=== PATIENT | female | born 1985 | race Caucasian/White ===

== ENCOUNTER 2017-11-29 22:59 | Emergency (ER) | payer MEDICAID ==
[2017-11-29] MEDS ORDERED: SODIUM CHLORIDE 0.9% 1,000 ML IV ONE (23:26)
[2017-11-29 23:52] LABS: ALBUMIN/GLOBULIN RATIO 1.4 (1.0-2.2); BASOPHILS # (AUTO) 0.1 10^3/uL (0.0-0.1); BASOPHILS % (AUTO) 0.4 %; BILIRUBIN,TOTAL 0.4 mg/dL (0.2-1.0); CALCIUM 8.4 mg/dL (8.5-10.3); CREATININE 0.7 mg/dL (0.4-1.0); EOSINOPHILS % (AUTO) 0.1 %; HGB - HEMOGLOBIN 7.4 g/dL (12.0-16.0); LYMPHOCYTES # (AUTO) 2.1 10^3/uL (1.5-3.5); LYMPHOCYTES % (AUTO) 13.2 %; MEAN CORPUSCULAR HEMOGLOBIN 22.1 pg (27.0-31.0); MEAN CORPUSCULAR HGB CONC 30.8 g/dL (32.0-36.0); MEAN CORPUSCULAR VOLUME 71.8 fL (81.0-99.0); MEAN PLATELET VOLUME 8.6 fL (7.9-10.8); MONOCYTES # (AUTO) 0.8 10^3/uL (0.0-1.0); MONOCYTES % (AUTO) 5.3 %; NEUTROPHILS # (AUTO) 12.8 10^3/uL (1.5-6.6); PLT - PLATELET COUNT 359 10^3/uL (130-450); RED BLOOD COUNT 3.35 10^6/uL (4.20-5.40); RED CELL DISTRIBUTION WIDTH 17.5 % (12.0-15.0); TOTAL PROTEIN 6.9 g/dL (6.7-8.2); WHITE BLOOD COUNT 15.8 x10^3/uL (4.8-10.8)
[2017-11-29 23:55] LABS: BILIRUBIN,URINE NEGATIVE (NEGATIVE); GLUCOSE, URINE (UA) 500 mg/dL (NEGATIVE); KETONES,URINE (UA) NEGATIVE (NEGATIVE); LEUKOCYTE ESTERASE, URINE NEGATIVE (NEGATIVE); NITRITE,URINE NEGATIVE (NEGATIVE); OCCULT BLOOD,URINE NEGATIVE (NEGATIVE); PROTEIN,URINE NEGATIVE (NEGATIVE); UROBILINOGEN,URINE 0.2 (NORMAL) E.U./dL (NORMAL)
[2017-11-30 00:01] LABS: CLARITY,URINE CLEAR (CLEAR); HCG UR QUAL NEGATIVE
--- NOTE | 2017-11-30 00:30 | ED Physician Documentation ---
PD HPI FEMALE - Stated complaint Stated Complaint: FEMALE - Chief complaint Chief Complaint: Abd Pain - History obtained from History obtained from: Patient - History of Present Illness Timing - onset: How many days ago (3-4) Timing - duration: Days Timing - details: Abrupt onset, Intermittant Pain level max: 4 Pain level max: 0 (intermittent mild suprapubic cramping, but not at this time) Associated symptoms: Pelvic pain, Vaginal bleeding. No: Fever, Chest/shoulder p ain, Abdominal pain, Back pain, Vaginal pain, Vaginal discharge, Genital sore/lesion, Dysuria, Urinary frequency, Hematuria Contributing factors: No: Similar symptoms before: Has not had sx before Recently seen: Not recently seen - Additional information Additional information: c/o vaginal bleeding past 3-4 days with clots and mild suprapubic cramping. LMP 11/05/17. the timing of her periods have been predictable and thus this is not normal for her. Review of Systems Constitutional: reports: Reviewed and negative Cardiac: reports: Reviewed and negative Respiratory: reports: Reviewed and negative GI: denies: Abdominal Pain (suprapubic cramping, but no abdominal pain per se), Nausea, Vomiting : reports: LMP (11/05/17), Vaginal bleeding, Control. denies: Dysuria, Frequency, Discharge, Now [facility] PD PAST MEDICAL HISTORY - Past Medical History Past Medical History: No - Past Surgical History Past Surgical History: No - Present Medications Home Medications: Ambulatory Orders Medication Instructions Recorded Confirmed Bcp 11/29/17 - Allergies Allergies/Adverse Reactions: Allergies Allergy/AdvReac Type Severity Reaction Status Date / Time No Known Drug Allergies Allergy Verified 11/29/17 23:09 - Social History Does the pt smoke?: Yes Smoking Status: Current every day smoker Does the pt drink ETOH?: Yes Does the pt have substance abuse?: No - Immunizations Immunizations are current?: Yes - POLST Patient has POLST: No PD ED PE NORMAL - Vitals Vital signs reviewed: Yes - General General: Alert and oriented X 3, No acute distress, Well developed/nourished - Cardiac Cardiac: RRR, No murmur - Respiratory Respiratory: No respiratory distress, Clear bilaterally - Abdomen Abdomen: Normal bowel sounds, Soft, Non tender, Non distended - Derm Derm: Warm and dry, Other (pale) - Neuro Neuro: Alert and oriented X 3 PD ED PE EXPANDED - Female Female : Vaginal Bleeding (there is no bleeding on external exam; upon insertion of the speculum, the vagina quickly fills with dark blood. the blood was removed, along with few small clots, and there was no further bleeding. cervix was well visualized, no abnormalities visualized and no bleeding from os), Rehab Technician present (ANNI Corcoran) Results - Vitals Vitals: Vital Signs - 24 hr 11/30/17 11/30/17 11/30/17 01:20 02:22 02:31 Temperature 36.7 C 36.7 C Heart Rate 89 82 90 Respiratory 16 16 16 Rate Blood Pressure 111/72 117/58 L 122/74 O2 Saturation 100 11/30/17 11/30/17 11/30/17 02:46 03:05 03:43 Temperature 36.1 C L 36.3 C L Heart Rate 79 89 74 Respiratory 16 15 16 Rate Blood Pressure 133/66 H 112/60 101/60 O2 Saturation 98 99 11/30/17 11/30/17 11/30/17 03:46 03:56 04:04 Temperature 36.3 C L 36.3 C L 36.2 C L Heart Rate 77 78 85 Respiratory 16 14 15 Rate Blood Pressure 101/60 113/54 L 97/55 L O2 Saturation 11/30/17 11/30/17 11/30/17 04:20 04:26 04:56 Temperature 36.4 C L 36.2 C L Heart Rate 89 89 79 Respiratory 18 15 16 Rate Blood Pressure 97/51 L 113/62 112/58 L O2 Saturation 98 11/30/17 11/30/17 11/30/17 05:20 06:00 06:52 Temperature 36.3 C L 36.3 C L 36.6 C Heart Rate 73 75 84 Respiratory 15 16 16 Rate Blood Pressure 122/48 L 114/74 103/87 H O2 Saturation 98 99 11/30/17 07:25 Temperature 36.8 C Heart Rate 75 Respiratory 16 Rate Blood Pressure 117/70 O2 Saturation 100 Oxygen O2 Source Room air - Labs Labs: Laboratory Tests 11/29/17 11/29/17 11/29/17 23:24 23:24 23:24 WBC 15.8 H RBC 3.35 L Hgb 7.4 L Hct 24.1 L MCV 71.8 L MCH 22.1 L MCHC 30.8 L RDW 17.5 H Plt Count 359 MPV 8.6 Neut # (Auto) 12.8 H Lymph # (Auto) 2.1 Baker # (Auto) 0.8 Eos # (Auto) 0.0 Baso # (Auto) 0.1 Absolute Nucleated RBC 0.00 Nucleated RBC % 0.0 Sodium 132 L Potassium 2.7 L Chloride 101 Carbon Dioxide 20 L Anion Gap 11.0 BUN 7 Creatinine 0.7 Estimated GFR (MDRD) 96 Glucose 199 H Calcium 8.4 L Iron TIBC % Saturation Transferrin Total Bilirubin 0.4 AST 24 ALT 11 Alkaline Phosphatase 69 Total Protein 6.9 Albumin 4.0 Globulin 2.9 Albumin/Globulin Ratio 1.4 Lipase 30 Urine Color YELLOW Urine Clarity CLEAR Urine pH 6.0 Ur Specific Cecil >=1.030 H Urine Protein NEGATIVE Urine Glucose (UA) 500 H Urine Ketones NEGATIVE Urine Occult Blood NEGATIVE Urine Nitrite NEGATIVE Urine Bilirubin NEGATIVE Urine Urobilinogen 0.2 (NORMAL) Ur Leukocyte Esterase NEGATIVE Ur Microscopic Review NOT INDICATED Urine Culture Comments NOT INDICATED Urine HCG, Qual NEGATIVE Blood Type Blood Type Recheck Antibody Screen Crossmatch IS Only 11/29/17 11/30/17 11/30/17 23:24 00:01 00:35 WBC RBC Hgb Hct MCV MCH MCHC RDW Plt Count MPV Neut # (Auto) Lymph # (Auto) Baker # (Auto) Eos # (Auto) Baso # (Auto) Absolute Nucleated RBC Nucleated RBC % Sodium Potassium Chloride Carbon Dioxide Anion Gap BUN Creatinine Estimated GFR (MDRD) Glucose Calcium Iron 9 L TIBC 455 H % Saturation 2 L Transferrin 325 Total Bilirubin AST ALT Alkaline Phosphatase Total Protein Albumin Globulin Albumin/Globulin Ratio Lipase Urine Color Urine Clarity Urine pH Ur Specific Cecil Urine Protein Urine Glucose (UA) Urine Ketones Urine Occult Blood Urine Nitrite Urine Bilirubin Urine Urobilinogen Ur Leukocyte Esterase Ur Microscopic Review Urine Culture Comments Urine HCG, Qual Blood Type O POSITIVE Blood Type Recheck O POSITIVE Antibody Screen NEGATIVE Crossmatch IS Only See Detail 11/30/17 06:25 WBC RBC Hgb 8.6 L Hct 26.3 L MCV MCH MCHC RDW Plt Count MPV Neut # (Auto) Lymph # (Auto) Baker # (Auto) Eos # (Auto) Baso # (Auto) Absolute Nucleated RBC Nucleated RBC % Sodium Potassium Chloride Carbon Dioxide Anion Gap BUN Creatinine Estimated GFR (MDRD) Glucose Calcium Iron TIBC % Saturation Transferrin Total Bilirubin AST ALT Alkaline Phosphatase Total Protein Albumin Globulin Albumin/Globulin Ratio Lipase Urine Color Urine Clarity Urine pH Ur Specific Cecil Urine Protein Urine Glucose (UA) Urine Ketones Urine Occult Blood Urine Nitrite Urine Bilirubin Urine Urobilinogen Ur Leukocyte Esterase Ur Microscopic Review Urine Culture Comments Urine HCG, Qual Blood Type Blood Type Recheck Antibody Screen Crossmatch IS Only PD MEDICAL DECISION MAKING - ED course Complexity details: reviewed results, re-evaluated patient, considered differential, d/w patient ED course: significant anemia on serum testing. no previous results for comparison. Low indices suggest a chronic component. She tells me she has never required transfusions, but she does recall being told she had anemia approximately 3 years ago when she had her last child, and she recalls being told the number was 9.4 (likely her hemoglobin). She does not have symptoms referable to anemia (such as weakness, lightheadedness/dizziness, dyspnea). Also noted hypokalemia on serum testing. 2 units PRBC transfused and scrap breaker consulted. D/W Dr. Keita, requests imaging (specifically, pelvic/TV US), and results then relayed to Dr. Keita. By the time the US results were available, patient had been in ED for several hours and had not had any further bleeding since the pelvic exam. Dr. Keita and I decided on further ED observation and he will evaluate her in ED in the morning; this will provide more time for completion of transfusion, repeat h/h, and observation for recurrence of bleeding. Dr. Keita evaluated patient in ED as planned and she had no recurrence of bleeding. Her hemoglobin improved to 8.6 (which is approaching her report of 9.4 hgb a few years ago), and she remained asymptomatic from standpoint of anemia. give PO potassium and f/u with Dr. Keita, will return immediately if worse in any way. - Sepsis Event Vital Signs: Vital Signs - 24 hr 11/30/17 11/30/17 11/30/17 01:20 02:22 02:31 Temperature 36.7 C 36.7 C Heart Rate 89 82 90 Respiratory 16 16 16 Rate Blood Pressure 111/72 117/58 L 122/74 O2 Saturation 100 11/30/17 11/30/17 11/30/17 02:46 03:05 03:43 Temperature 36.1 C L 36.3 C L Heart Rate 79 89 74 Respiratory 16 15 16 Rate Blood Pressure 133/66 H 112/60 101/60 O2 Saturation 98 99 11/30/17 11/30/17 11/30/17 03:46 03:56 04:04 Temperature 36.3 C L 36.3 C L 36.2 C L Heart Rate 77 78 85 Respiratory 16 14 15 Rate Blood Pressure 101/60 113/54 L 97/55 L O2 Saturation 11/30/17 11/30/17 11/30/17 04:20 04:26 04:56 Temperature 36.4 C L 36.2 C L Heart Rate 89 89 79 Respiratory 18 15 16 Rate Blood Pressure 97/51 L 113/62 112/58 L O2 Saturation 98 11/30/17 11/30/17 11/30/17 05:20 06:00 06:52 Temperature 36.3 C L 36.3 C L 36.6 C Heart Rate 73 75 84 Respiratory 15 16 16 Rate Blood Pressure 122/48 L 114/74 103/87 H O2 Saturation 98 99 11/30/17 07:25 Temperature 36.8 C Heart Rate 75 Respiratory 16 Rate Blood Pressure 117/70 O2 Saturation 100 Oxygen O2 Source Room air Departure - Departure Disposition: 01 Home, Self Care Clinical Impression: Vaginal bleeding, Hypokalemia Anemia Qualifiers: Anemia type: unspecified type Qualified Code(s): D64.9 - Anemia, unspecified Condition: Good Instructions: ED Anemia Type Not Specified, ED Bleed Irregular Vaginal, ED Potassium Deficiency Follow-Up: Joce Keita MD [Provider Admit Priv/Credential] - Discharge Date/Time: 11/30/17 08:30
[2017-11-30] MEDS ORDERED: SODIUM CHLORIDE 0.9% 500 ML IV ONE (02:25)
--- NOTE | 2017-11-30 03:27 | Ultrasound Report ---
Reason: vaginal bleeding Procedure Date: 11/30/2017 Accession Number: [id number] / [id number] Procedure: US - Pelvic Complete CPT Code: FULL RESULT: EXAM: PELVIC ULTRASOUND EXAM DATE: 11/30/2017 03:00 AM. CLINICAL HISTORY: Vaginal bleeding. COMPARISON: None. TECHNIQUE: Realtime transabdominal pelvic scan performed to identify the uterus and adnexa and as an overview of other pelvic structures, followed by transvaginal scan to provide greater detail of the uterus and adnexa, with static image documentation. FINDINGS: Uterus: 10.2 x 5.4 x 5.9 cm, volume 168 cc. Anteverted position. Heterogeneous echotexture. Masses: Anterior submucosal fibroid measuring 3.9 x 2.7 x 3.0 cm. Increased area of vascularity in the posterior myometrium without well-defined fibroid. Endometrium: 8.1 mm. Heterogeneous and somewhat ill-defined. Endometrial vascularity is noted. Cervix: Unremarkable. Right Ovary: 2.9 x 1.4 x 1.5 cm, volume 3.3 cc. Normal echotexture and blood flow. Left Ovary: 2.4 x 1.8 cm. Suboptimally seen. Blood flow seen in the ovary. Free Fluid: None. Other: None. IMPRESSION: 1. Prominent heterogeneous uterus with anterior submucosal fibroid measuring 3.9 x 2.7 x 3.0 cm. 2. There is some vascularity in the posterior myometrium without well-defined fibroid. 3. Endometrial thickness is normal at 8 mm. Vascularity is seen in the endometrium. Cannot exclude polyp, AVM, or other endometrial abnormality. 4. No adnexal abnormalities seen. RADIA
--- NOTE | 2017-11-30 03:27 | Ultrasound Report ---
Reason: vaginal bleeding Procedure Date: 11/30/2017 Accession Number: [id number] / [id number] Procedure: US - Transvaginal CPT Code: FULL RESULT: EXAM: PELVIC ULTRASOUND EXAM DATE: 11/30/2017 03:00 AM. CLINICAL HISTORY: Vaginal bleeding. COMPARISON: None. TECHNIQUE: Realtime transabdominal pelvic scan performed to identify the uterus and adnexa and as an overview of other pelvic structures, followed by transvaginal scan to provide greater detail of the uterus and adnexa, with static image documentation. FINDINGS: Uterus: 10.2 x 5.4 x 5.9 cm, volume 168 cc. Anteverted position. Heterogeneous echotexture. Masses: Anterior submucosal fibroid measuring 3.9 x 2.7 x 3.0 cm. Increased area of vascularity in the posterior myometrium without well-defined fibroid. Endometrium: 8.1 mm. Heterogeneous and somewhat ill-defined. Endometrial vascularity is noted. Cervix: Unremarkable. Right Ovary: 2.9 x 1.4 x 1.5 cm, volume 3.3 cc. Normal echotexture and blood flow. Left Ovary: 2.4 x 1.8 cm. Suboptimally seen. Blood flow seen in the ovary. Free Fluid: None. Other: None. IMPRESSION: 1. Prominent heterogeneous uterus with anterior submucosal fibroid measuring 3.9 x 2.7 x 3.0 cm. 2. There is some vascularity in the posterior myometrium without well-defined fibroid. 3. Endometrial thickness is normal at 8 mm. Vascularity is seen in the endometrium. Cannot exclude polyp, AVM, or other endometrial abnormality. 4. No adnexal abnormalities seen. RADIA
[2017-11-30 06:30] LABS: HGB - HEMOGLOBIN 8.6 g/dL (12.0-16.0)
[2017-11-30] MEDS ORDERED: POTASSIUM BICARB 25 MEQ TABLET PO STA (07:11)
[2017-11-30 07:27] VITALS: BP 117/70
[2017-11-30 07:46] LABS: % IRON SATURATION 2 % (20-50); IRON 9 ug/dL (28-170); TOTAL IRON BINDING CAPACITY 455 ug/dL (250-450); TRANSFERRIN 325 mg/dL (192-382)
--- NOTE | 2017-11-30 09:23 | HISTORY & PHYSICAL EXAMINATION ---
DATE OF SERVICE: 11/30/2017 Physician: Joce Keita MD IDENTIFICATION: Patient is a 32-year-old AB2 female whose last menstrual period started 2017. CHIEF COMPLAINT: Vaginal bleeding and anemia. HISTORY OF PRESENT ILLNESS: The patient states she had a normal period on 11/05/2017, bled for rough ly 10 days, stopped for a week, but then return to bleeding. This was heavy enough to need to change a pad every 15 minutes. She had passed clots which are walnut sized. She is taking control p ills. She states she has some cramping with her bleeding. She lists this at a 3/10. She would occa sionally soil her clothing second to her bleeding. She states that the first time she has had this k ind of heavy bleeding; however, she does give a history of being anemic following the of her la st child, she was 9 grams of hemoglobin, and she thinks she has been anemic in the past. She denies any fatigue or palpitations at this time. PAST MEDICAL HISTORY: The patient denies hypertensive, diabetic or pulmonary disease. PAST SURGICAL HISTORY: Positive for dental surgery, as well as a left wrist cyst removal. ALLERGIES: NONE KNOWN. CURRENT MEDICATIONS: control pills. She denies taking iron. HABITS: The patient smokes 10 cigarettes per day, and has been told is imperative that she stopped t his. Alcohol, she drinks maybe once a month. She denies use of any drugs or tetrahydrocannabinol. SOCIAL HISTORY: Patient is and lives with spouse and child, works as a senior portfolio manager. FAMILY HISTORY: Unknown, as she is adopted. REVIEW OF SYSTEMS: Positive for the need for glasses. She denies any difficulty with heart GI, musc uloskeletal or . PHYSICAL EXAMINATION GENERAL: The patient is a well-developed, well-nourished white female. She is in no distress at thi s time. VITAL SIGNS: Her blood pressure most recent is 103/87, respirations 16, heart rate is 84. She is sa turating 99% on room air, and she is afebrile. HEENT: Pupils equal, round. Extraocular muscles intact. NECK: Thyroid not palpably enlarged. HEART: Regular rate and rhythm without murmurs. LUNGS: Lung riojas are clear without rales or wheezes. BACK: No spinal or CVA tenderness noted. ABDOMEN: Soft, nontender without evidence of any masses. PELVIC: Uterus resides high in the pelvis. It palpates anterior. It is nontender, and there is no blood on the examiner's hand at this particular time. LABORATORY DATA 1. On admission, her white count was 15.8, her hemoglobin was 7.4, hematocrit 24.1, MCV, MCH, and MC HC were all compatible with a profound iron deficiency. She had a repeat CBC following 2 units of bl ood, which was 8.6 with hematocrit of 26.3. 2. Electrolytes: Sodium was 132, potassium was 2.4. The remainder were within normal limits. 3. The patient had an ultrasound. Showed evidence of an anterior submucosal fibroid 3.9 x 2.7 x 3.0 cm. There was also an increased vascularity in the posterior myometrium without any well-defined fi broid. The endometrial thickness was 8.1 mm. The ovaries appear to be normal. The uterus size was 10.2, anteverted. ASSESSMENT AND PLAN: 32-year-old female with anemia secondary to menorrhagia. This apparently is probably secondary to either the submucosal fibroid, or the other possibility is increased vascul arity noted in the posterior myometrium. At this point, she is stable and she is not doing any further bleeding. I have discussed with her th e need for followup on this, and she needs to call the clinic for an appointment for MERCHANDISING CONSULTANT followup. S he is instructed that should she have further bleeding that she should return. She is also instructe d she needs to start taking her iron twice a day, as well as start taking some form of stool softener . TD: 11/30/2017 07:29
== END 2017-11-30 08:30 | disposition home or self-care (01) ==
LOC: ED 22:59
DX: N93.9 Abnormal uterine and vaginal bleeding, unspecified (principal); E87.6 Hypokalemia; D64.9 Anemia, unspecified; F17.200 Nicotine dependence, unspecified, uncomplicated
CPT/HCPCS: 36415; 76830; 76856; 80053; 81003; 81025; 83540; 83690; 84466; 85014; 85018; 85025; 86850; 86900; 86901; 86920; 96360; 96361; 99282; 99285; A9270; P9016; 81001; 87086

== ENCOUNTER 2017-12-20 15:39 | Outpatient (CLI) | payer MEDICAID ==
[2017-12-20 16:10] LABS: BASOPHILS % (AUTO) 0.4 %; EOSINOPHILS % (AUTO) 0.6 %; HGB - HEMOGLOBIN 8.8 g/dL (12.0-16.0); LYMPHOCYTES # (AUTO) 1.4 10^3/uL (1.5-3.5); LYMPHOCYTES % (AUTO) 27.4 %; MEAN CORPUSCULAR HGB CONC 31.5 g/dL (32.0-36.0); MEAN CORPUSCULAR VOLUME 73.2 fL (81.0-99.0); MONOCYTES # (AUTO) 0.3 10^3/uL (0.0-1.0); MONOCYTES % (AUTO) 6.7 %; NEUTROPHILS # (AUTO) 3.2 10^3/uL (1.5-6.6); NEUTROPHILS % (AUTO) 64.9 %; PLT - PLATELET COUNT 224 10^3/uL (130-450); RED BLOOD COUNT 3.83 10^6/uL (4.20-5.40); RED CELL DISTRIBUTION WIDTH 18.8 % (12.0-15.0)
[2017-12-20 16:18] LABS: CREATININE 0.7 mg/dL (0.4-1.0)
[2017-12-20 18:02] LABS: HCG UR QUAL NEGATIVE
== END 2017-12-20 15:40 | disposition home or self-care (01) ==
LOC: LAB 15:39
PROVIDERS: ATTEND Obstetrics & Gynecology
DX: N92.0 Excessive and frequent menstruation with regular cycle (principal)
CPT/HCPCS: 36415; 80048; 81025; 85025; 86850; 86900; 86901

== ENCOUNTER 2017-12-21 07:52 | Day surgery (SDC) | payer MEDICAID ==
--- NOTE | 2017-12-20 15:44 | PREOP HISTORY & PHYSICAL ---
DATE OF SERVICE: 12/20/2017 Physician: Joce Keita MD PATIENT IDENTIFICATION: The patient is a 32-year-old G4, P2, AB2 female whose last menstrual period was roughly 11/05/2017 CHIEF COMPLAINT: Heavy periods. HISTORY OF PRESENT ILLNESS: The patient states she has been having normal periods up until this last middle of November, at which time she had a very heavy period requiring her to go to the emergency room. She was changing a pad or a tampon every 5 minutes. The bleeding was significant enough that she was transfused 2 units of packed cells. She states that the bleeding has resolved, but has had a single recurrence. She had an ultrasound that showed an anterior fibroid, but also was noted to hav e a vascular area in the posterior portion of the uterus. For this reason, she needs to have a hyste roscopy, D and C. PAST MEDICAL HISTORY: Positive for fibromyalgia. PAST SURGICAL HISTORY: Positive for a left hand ganglion cyst as well as multiple dental surgeries. ALLERGIES: NONE KNOWN. CURRENT MEDICATIONS: Iron. HABITS: The patient smokes 10 cigarettes per day. Denies use of alcohol, drugs, or tetrahydrocannab inol. REVIEW OF SYSTEMS: Positive for bad vision. She also has joint pains associated with the fibromyalg ia. PHYSICAL EXAMINATION: GENERAL: Well-developed, well-nourished white female. She was is in no acute distress at this time. HEENT: Pupils equal and round. Extraocular muscles are intact. Thyroid is not palpably enlarged. Mouth is clear. She has evidence of implants, both upper and lowers. HEART: Regular rate and rhythm without murmur. LUNGS: Lung riojas are clear without rales or wheezes. BACK: No spinal or CVA tenderness noted. ABDOMEN: Soft, nontender without evidence of any scars. PELVIC: Previously showed evidence of a normal cervix. The uterus was not enlarged. On ultrasound it shows a 3 cm anterior fibroid as well as vascular lesion in the posterior uterus. ASSESSMENT AND PLAN: A 32-year-old G4, P2 female with heavy periods requiring transfusion as well as ultrasound which shows evidence of fibroids. She also showed evidence of a vascular area in the pos terior portion of the uterus. For this reason, I think it is imperative to do an endometrial biopsy to rule out any malignant process. There was a concern that this may bleed at the time of D and C an d therefore may require hysterectomy. The patient is aware of this possibility. She is aware she ca n take her uterus out. She will never be able to get again. Risks were explained to the lea allen. We explained to the patient including those but not limited to bleeding, infection, injury to pelvic organs, which include uterus, tubes, ovaries, bowel, bladder, ureter. She is aware of the po tential for DVT with PE as well as postoperative lesions, which can cause pain, bowel obstruction and infertility. TD: 12/20/2017 15:12
[~2017-12-21 07:52] MED LIST: ceFAZolin 2 GM/50 ML 2 GM/50 ML BAG IV ONE
[2017-12-21] MEDS ORDERED: LACTATED RINGERS 1,000 ML IV ONE ×2 (07:59→10:07)
--- NOTE | 2017-12-21 08:01 | ANESTHESIA ---
Pre-Anesthesia VS, & Labs - Diagnosis Menorrhagia - Procedure Myosure hysteroscopy, D&C Height 5 ft 7 in Body Mass Index 21.1 - NPO >8 hours - Is Patient ?: No Comments:: neg urine HCG 12/20/17 - Lab Results Lab results reviewed: Yes Home Medications and Allergies Bcp 11/29/17 Allergies/Adverse Reactions: Allergies Allergy/AdvReac Type Severity Reaction Status Date / Time No Known Drug Allergies Allergy Verified 11/29/17 23:09 Anes History & Medical History - Anesthetic History Anesthesia Complications: reports: No previous complications Family history of Anesthesia Complications: Denies Family history of Malignant Hyperthermia: Denies - Medical History Cardiovascular: reports: None Pulmonary: reports: None Gastrointestinal: reports: None Urinary: reports: None Musculoskeletal: reports: None Endocrine/Autoimmune: reports: None Skin: reports: None Smoking Status: Current every day smoker Exam General: Alert Dental: Dentures full Upper (implant), Dentures full Lower (implant) Mouth Openin Fingerbreadth Neck Mobility: Normal Mallampati classification: II Respiratory: Lungs clear, Normal breath sounds, No respiratory distress Cardiovascular: Regular rate Neurological: Normal speech Mental/Cognitive Status: Alert/Oriented X3 Plan Anesthesia Type: General Consent for Procedure(s) Verified and Reviewed: Yes Code Status: Attempt Resuscitation ASA classification: 2-Mild systemic disease Is this case an emergency?: No
[2017-12-21] MEDS ORDERED: BUPIVACAINE 0.25%-EPI 1:200000 PF 30 ML VIAL ONE (09:16)
[2017-12-21] MEDS ORDERED: METHYLERGONOVINE 0.2 MG/ML AMP IVP ONE ×2 (09:50→10:12)
[2017-12-21] MEDS ORDERED: BUPIVACAINE 0.25%-EPI 1:200000 PF 10 ML VIAL SUBQ ONE (09:56)
[2017-12-21] MEDS ORDERED: ACETAMINOPHEN 1,000 MG/100 ML 100 ML IV ONE (10:12)
[2017-12-21] MEDS ORDERED: ONDANSETRON 4 MG/2 ML VIAL IVP ONE (10:12)
[2017-12-21] MEDS ORDERED: ceFAZolin 2 GM/50 ML BAG IV ONE (10:12)
[2017-12-21] MEDS ORDERED: PROPOFOL 200 MG/20 ML VIAL IVP ONE (10:12)
[2017-12-21] MEDS ORDERED: LIDOCAINE-MPF 2% 5 ML VIAL IM ONE (10:12)
[2017-12-21] MEDS ORDERED: LORazepam 2 MG/ML VIAL IVP PRN (10:17)
[2017-12-21] MEDS ORDERED: ONDANSETRON 4 MG/2 ML VIAL IVP PRN (10:17)
[2017-12-21] MEDS ORDERED: HYDROmorphone 0.5 MG/0.5 ML SYRINGE IVP PRN (10:17)
[2017-12-21] MEDS ORDERED: oxyCODONE 5 MG TABLET PO PRN (10:17)
--- NOTE | 2017-12-21 10:22 | OPERATIVE REPORT ---
Operative Report - General Planned Procedure: Hysterscopy with D&C Pre-Op Diagnosis: menorrhagia suspected fibroid Procedure Performed: Hysterscopy with D&C Myosure light Post Op Diagnosis: increased vascurlarity on the left anterior endometrial cavity - Procedure Note Primary Surgeon: Joce Keita MD Anesthesia Provider: albertina Niño MD Anesthesia Technique: General LMA Pathology: Endometrial curretings IV Fluids (mL): 600 Estimated Blood Loss (mL): 100 - Other Other Information/Narrative: dictation # [id number]
[2017-12-21] MEDS ORDERED: HYDROmorphone 1 MG/ML CARPUJECT ONE (10:31)
[2017-12-21 11:27] VITALS: BP 115/62
--- NOTE | 2017-12-21 13:01 | OPERATIVE REPORT ---
DATE OF SERVICE: 12/21/2017 Physician: Joce Keita MD PREOPERATIVE DIAGNOSIS: 1. Menorrhagia 2. uspect submucosal fibroid 3. Vascular lesion. POSTOPERATIVE DIAGNOSIS: Normal lining of the uterus. PROCEDURE PERFORMED: Hysteroscopy with dilation and curettage. SURGEON: Dr. Joce Keita. ANESTHESIA: Emiliano Xiong MD. ESTIMATED BLOOD LOSS: 100 mL IV FLUIDS: 600 mL FINDINGS: Upon entering the uterine cavity, the cornu were visualized bilaterally without evidence of any lesions, and the entire cavity appeared to be free of disease. The left anterior portion of the uterus showed some increased vascularity, and this was difficult to determine whether this was caused by the sounding or by innate lesion. Uterus sounded to 9 cm. DESCRIPTION OF PROCEDURE: Following adequate general anesthesia via LMA, patient was placed in the dorsal lithotomy position in Aneudy stirrups. Pelvic examination under anesthesia was performed, at which time the uterus was determined to be anterior. The adnexa were not palpably enlarged. She was then prepped and draped in the usual fashion. A timeout was performed, at which time, the concerns about bleeding were reviewed. The procedure was commenced. The cervix was visualized with a speculum, grasped anteriorly with a single- tooth tenaculum. Uterus was then sounded to 9 cm, then dilated to 6 mm. A MyoSure hysteroscope was introduced, and the entire endometrial cavity visualized. The cornu appeared to be normal. There was no evidence of any submucosal fibroids or evidence of any large vascular lesions posteriorly. The endometrial cavity was then trimmed utilizing the MyoSure LITE. During the procedure, there was an 875 mL deficit of sterile saline. Photographs were taken, both pre and post-procedure. Upon taking the MyoSure out, there was some mild bleeding, which was treated with Methergine 0.2 mg IM. The patient tolerated procedure well and was taken to recovery in stable condition. Sponge and needle counts were correct. TD: 12/21/2017 11:00 MTDD
== END 2017-12-21 07:53 | disposition home or self-care (01) ==
LOC: SDS 07:52
PROVIDERS: ATTEND Obstetrics & Gynecology
PROC: 0UDB8ZX Extraction of Endometrium, Via Natural or Artificial Opening Endoscopic, Diagnostic (ICD-10-PCS; principal; 2017-12-21 08:45)
DX: N92.0 Excessive and frequent menstruation with regular cycle (principal); D64.9 Anemia, unspecified; M79.7 Fibromyalgia; F17.210 Nicotine dependence, cigarettes, uncomplicated; H54.7 Unspecified visual loss
CPT/HCPCS: 58558; 86850; 86900; 86901; 86920; J0131; J0690; J1170; J7120